=== PATIENT | female | born 1980 | race Caucasian/White ===

== ENCOUNTER → 2022-09-05 15:13 | Outpatient (CLI) | payer OTHER, SELFPAY ==
--- NOTE | ~2022-09-05 | CT_ITS ---
EXAMINATION: CT abdomen pelvis w con DATE: 09/05/2022 16:14 INDICATION: Unspecified abdominal pain TECHNIQUE: Computed tomography (CT) of the abdomen and pelvis was performed with 100 cc Omnipaque 350 intravenous contrast. The dose-length product was 703.79 mGy-cm. Automated exposure control and iter ative reconstruction technique were employed. COMPARISON: None. FINDINGS: Lung bases are unremarkable. Heart size normal. No significant pleural or pericardial effus ion. There are cysts of the right ovary, largest measuring 2.7 cm. No significant vascular abnormality. Nonobstructive bowel gas pattern. No lymphadenopathy. The liver, spleen, pancreas, adrenal glands and kidneys are unremarkable. No free air or free fluid. Normal lori endix. Mild lumbar spondylosis. No focal lytic or blastic lesions. IMPRESSION: 1. No acute abdominal abnormality. 2: Right ovarian cysts, largest measuring 2.7 cm. Reviewed, dictated and finalized at location A. [facility]
== END ==
PROVIDERS: PCP Internal Medicine; Visit Provider Internal Medicine
DX: R10.9 Unspecified abdominal pain (principal); N83.201 Unspecified ovarian cyst, right side
CPT/HCPCS: 74177; Q9967